=== PATIENT | male | born 1940 | race Caucasian/White ===

== ENCOUNTER 2025-05-04 13:37 | Outpatient (CLI) | payer MEDICARE ==
[2025-05-04 14:28] LABS: #Basophils 0.09 10x3/uL (0.0-0.2); #Eosinophils 0.23 10x3/uL (0.0-0.7); #Monocytes 0.61 10x3/uL (0.11-0.59); #Neutrophils 3.71 10x3/uL (1.40-6.50); %Basophils 1.2 % (0.0-1.0); %Eosinophils 3.0 % (0.0-10.0); %Lymphocytes 38.8 % (21.0-51.0); %Monocytes 8.0 % (0.0-10.0); %Neutrophils 48.9 % (42.0-75.0); Hematocrit 35.7 % (42.0-52.0); Hemoglobin 12.0 g/dL (14.0-18.0); Mean Corpuscular Hemoglobin 32.4 pg (27.0-31.0); Mean Corpuscular Volume 96.5 fL (78.0-98.0); Platelet Count 185 10x3/uL (130-400); Red Blood Cell (RBC) Count 3.70 mill/uL (4.70-6.10); White Blood Cell (WBC) Count 7.60 10x3/uL (4.8-10.8)
[2025-05-04 14:42] LABS: Anion Gap 12 mmol/L (10-20); BUN (Urea Nitrogen) 13 mg/dL (8.4-25.7); Calc. Creatinine Clearance 0 mL/min (70-130); Calcium 8.3 mg/dL (7.8-10.44); Carbon Dioxide 23 mmol/L (23-31); Chloride 108 mmol/L (98-107); Glucose 93 mg/dL (83-110); Potassium 4.0 mmol/L (3.5-5.1); Sodium 139 mmol/L (136-145)
== END 2025-05-04 13:38 | disposition home or self-care (01) ==
LOC: LABBT 13:37
PROVIDERS: ATTEND Orthopaedic Surgery
DX: Z01.818 Encounter for other preprocedural examination (principal); G56.01 Carpal tunnel syndrome, right upper limb
CPT/HCPCS: 71046; 80048; 85025

== ENCOUNTER 2025-05-06 09:08 | Day surgery (SDC) | payer MEDICARE ==
[2025-05-04 13:52] VITALS: BMI 24.3
[2025-05-06] MEDS ORDERED: CEFAZOLIN 2 GM VIAL ONE (11:45)
[2025-05-06] MEDS ORDERED: PHENYLEPHRINE-NS 100 MCG/ML 10 ML SYRINGE ONE (12:12)
[2025-05-06] MEDS ORDERED: Lidocaine 1% PF 5 ML VIAL ONE (12:12)
[2025-05-06] MEDS ORDERED: PROPOFOL 20 ML ONE (12:12)
[2025-05-06] MEDS ORDERED: Ondansetron PF 4 MG/2 ML Vial ONE (12:35)
== END 2025-05-06 14:40 | disposition home or self-care (01) ==
LOC: SDC 09:08
PROVIDERS: ATTEND Orthopaedic Surgery
PROC: 01N50ZZ Release Median Nerve, Open Approach (ICD-10-PCS; principal; 2025-05-06)
DX: G56.03 Carpal tunnel syndrome, bilateral upper limbs (principal); G40.909 Epilepsy, unspecified, not intractable, without status epilepticus; E78.00 Pure hypercholesterolemia, unspecified; Z90.49 Acquired absence of other specified parts of digestive tract; Z98.41 Cataract extraction status, right eye; Z98.42 Cataract extraction status, left eye; Z98.890 Other specified postprocedural states; Z79.899 Other long term (current) drug therapy
CPT/HCPCS: 64721; A6223; J0665; J1100; J2405; J2704; J3010